=== PATIENT | female | born 1935 | race African-American/Black ===

== ENCOUNTER → 2016-12-06 | Outpatient (CLI) | payer OTHER ==
[~2016-12-06] MED LIST: ACETAMINOPHEN325 M1 PO; ACID CONTROL20 MG PO; ADVAIR 250-501 EACH INH; ALBUTEROL2.5 MG/0.1 INH; AMLODIPINE BESY10 MG PO; ARICEPT 5 MG TAB5 MG PO; ATORVASTATIN CA20 MG PO; BAYER CHEWABLE81 MG PO; BENICAR40 MG PO; CARVEDILOL12.5 MG PO; COLACE100 MG PO; FUROSEMIDE 40 M40 M1 PO; GLUCOPHAGE500 MG PO; HYDROCODON-ACE1 EAC7 PO; IMODIUM MULTI-1 EACH PO; K-DUR10 MEQ PO; MECLIZINE HCL25 M1 PO; MYLANTA GELCAP1 EACH PO; REMERON15 M1 PO; SEROQUEL 12.512.5 MG PO; SINGULAIR 10 MG10 M1 PO
== END ==
LOC: RAD 13:25
DX: J44.9 Chronic obstructive pulmonary disease, unspecified (principal); R06.89 Other abnormalities of breathing

== ENCOUNTER → 2017-12-06 | Outpatient (CLI) | payer OTHER ==
[~2017-12-06] MED LIST changes: +ALDACTONE50 MG PO; +CELEXA20 MG PO; +CENTRUM SILVER1 EAC4 PO; +FIBER CON PO; +FIBER TABS625 MG PO; +GABAPENTIN 100100 MG PO; +LIALDA1.2 GM PO; +PEPCID20 MG PO; +TRAMADOL 50 MG50 MG PO; +TYLENOL EXTRA500 MG PO
== END ==
LOC: RAD 13:17
DX: J44.9 Chronic obstructive pulmonary disease, unspecified (principal); I70.0 Atherosclerosis of aorta

== ENCOUNTER → 2018-02-03 | Outpatient (CLI) | payer OTHER ==
[~2018-02-03] MED LIST changes: -ALDACTONE50 MG PO; -CELEXA20 MG PO; -CENTRUM SILVER1 EAC4 PO; -FIBER CON PO; -FIBER TABS625 MG PO; -GABAPENTIN 100100 MG PO; -LIALDA1.2 GM PO; -PEPCID20 MG PO; -TRAMADOL 50 MG50 MG PO; -TYLENOL EXTRA500 MG PO
== END ==
LOC: RAD 15:35
DX: R07.89 Other chest pain (principal); R10.11 Right upper quadrant pain; I70.0 Atherosclerosis of aorta

== ENCOUNTER → 2018-02-07 | Outpatient (CLI) | payer OTHER | LOC: ULTRA 06:48 | DX: K80.20 Calculus of gallbladder without cholecystitis without obstruction (principal); N28.1 Cyst of kidney, acquired ==

== ENCOUNTER 2018-03-03 05:23 | Inpatient (IN) | payer OTHER ==
[~2018-03-03] VITALS: Ht 149.9 cm; Wt 68.5 kg
--- NOTE | ~2018-03-03 | EKG ---
[place] [address] [address] [facility] [place] [address] ELECTROCARDIOGRAM REPORT Name: BRUNA CRUZ Room #: 424-P ADM IN M.R.#: [id number] Admission: 03/03/18 Attend Phys: Hetal Sebastian MD, Discharge: Date of : 31 Report #: [id number] THIS REPORT FOR: //name// [facility] Test Date: 2018-03-03 Test Time: 10:20:46 Pat Name: BRUNA CRUZ Department: Room: 150 2 Gender: F Shoulder Boner: Lucie BURDICK : 1935 Requested By: Hetal Sebastian Order Number: [id number] MD: Jose Alvarenga Measurements Intervals Omro Rate: 68 P: 70 ME: 194 QRS: 8 QRSD: 113 T: 95 QT: 424 QTc: 451 Interpretive Statements Sinus rhythm Probable left atrial enlargement LVH with IVCD and secondary repol abnrm No previous ECG available for comparison Electronically Signed On 03-04-2018 14:06:50 CDT by Jose Alvarenga [email or web address] <ELECTRONICALLY SIGNED> By: Jose Alvarenga MD, [facility] 03/04/18 1406 1020 1020 Jose Alvarenga MD, [facility] /EPI
--- NOTE | ~2018-03-03 | PATH ---
[facility] [place] [address] PATHOLOGY RPT PROCEDURE Name: GRIGGSBRUNA OCTAVIO Room #: 424-P DIS IN M.R.#: [id number] Admission: 03/03/18 Date of : 31 Discharge: 03/04/18 Report #: [id number] Path Case #: [id number] [facility] Accession Number: [id number] . 01 Material submitted: . GALLBLADDER . 02 Diagnosis: "Gallbladder", cholecystectomy: - Chronic cholecystitis. - Cholelithiasis. (CLW:db; 03/04/2018) LBQ/03/04/2018 . 02 Electronically signed: . Danae Gustafson MD, Pathologist NPI- [id number] . 01 Gross description: . Received in formalin labeled "Bruna Griggs, gallbladder" and consists of a previously opened glistening pink and green gallbladder measuring 7.5 cm in length by 4.3 cm in circumference. The wall is pliable and averages 0.3 cm thick. The mucosa is gutierrez in color and diffusely finely granular. Also within the container are multiple black calculi ranging in size from less than 0.1 cm-0.2 cm and aggregating to 1.1 x 1.0 x 0.5 cm. Senior [employer] Consultant sections are submitted as A1. (TARA; 03/03/2018) JBR/JBR . 02 Pathologist provided ICD-10: K80.10 . 02 CPT . 293336 Performed at: [address], [place] [id number] MD Gael Butts MD Phone: [phone] Performed at: [address] [id number] MD Maylin Jonas MD Phone: [phone]
--- NOTE | ~2018-03-03 | O ---
[facility] [place] [address] OPERATIVE REPORT Name: BRUNA CRUZ Room #: 424-P ADM IN M.R.#: [id number] Admission: 03/03/18 Attend Phys: Hetal Sebastian MD, Discharge: Date of : 33 Report #: [id number] THIS REPORT FOR: //name// CC: Hetal Oconnor DATE OF SERVICE: 03/03/2018 PREOPERATIVE DIAGNOSIS: Symptomatic cholelithiasis. POSTOPERATIVE DIAGNOSES: 1. Symptomatic cholelithiasis. 2. Incarcerated umbilical hernia. PROCEDURES PERFORMED: 1. Laparoscopic cholecystectomy with intraoperative cholangiogram. 2. Laparoscopic primary suture repair of an incarcerated umbilical hernia. SURGEON: Hetal Sebastian MD. M48 M60 ARMOR CREWMAN: BEN Pena. ANESTHESIA: General endotracheal anesthesia. ESTIMATED BLOOD LOSS: Minimal (less than 5 mL). COMPLICATIONS: None appreciated. SPECIMENS: Gallbladder to pathology. INDICATIONS: The patient is an 82-year-old female who presented with chronic postprandial bloating and intermittent nausea with findings on ultrasound of gallstones. After thorough counseling, the patient presents for definitive surgical management for symptomatic cholelithiasis in the form of laparoscopic cholecystectomy with cholangiogram today. Intraoperative findings of a large amount of omentum incarcerated within a 2-cm umbilical hernia defect what were encountered that required reduction and primary suture repair. DESCRIPTION OF PROCEDURE: After explaining the risks, benefits and alternatives of the procedure with the patient in detail in the preoperative holding area and obtaining written consent, the patient was brought to the operating room and placed supine on the operating room table. After conducting a thorough timeout procedure verifying correct patient and procedure, the patient was given general endotracheal anesthesia. Once adequate anesthesia was obtained, her SCDs were hooked up to pneumatic compression device. She was given a preoperative dose of [facility] [address] [place] [address] OPERATIVE REPORT Name: NANCYBRUNA CUNNINGHAM Room #: 424-P [facility].#: [id number] Admission: 03/03/18 Attend Phys: Hetal Sebastian MD, Discharge: Date of : 33 Report #: [id number] antibiotics in line with the [facility] protocol. The patient's abdomen was prepped and draped in standard surgical sterile fashion. 5 mL of 0.5% Marcaine with epinephrine were used to anesthetize the skin in the supraumbilical location. A #15 bladed scalpel was used to create a 1-cm transverse skin incision at this location. An 11-mm Visiport was placed over 0-degree 5-mm laparoscope and was introduced through this incision site. Once intra-abdominal placement was verified visually, the obturator for the trocar and laparoscope were both removed and the abdomen was insufflated to 15 mmHg using carbon dioxide gas. The laparoscope was changed to a 5-mm 30-degree laparoscope, which was reintroduced through this trocar. The entire abdomen was evaluated to ensure no injury upon entry. I now placed 3 additional 5-mm trocars in the upper abdomen. First was placed in subxiphoid location and 2 were placed along the patient's right subcostal margin. All 3 additional 5-mm ports were placed under direct vision after anesthetizing the skin at each location with 5 mL of 0.5% Marcaine with epinephrine and I had created small skin nicks using #15 bladed scalpel. The patient was placed in steep reverse Trendelenburg with right side elevated and using the inferolateral most port along the patient's right flank. The fundus of the gallbladder was grasped and retracted cephalad. Careful tedious dissection was undertaken down around the cholecystocystic junction using combination of Harmonic scalpel and [place] dissector. Once I had attained a critical view, namely the cystic duct emanating from the infundibulum of the gallbladder and coursing the common bile duct as well as cystic artery running the surface of the gallbladder and I created a window behind each, I transected the cystic artery nearest to the gallbladder side using Harmonic scalpel for hemostasis. A single clip was then placed along the cystic duct nearest to the gallbladder side and a small ductotomy was made just distal to this clip using EndoShears. This ductotomy was cannulated using the taut cholangiocatheter setup and an intraoperative cholangiogram was obtained. We had prompt opacification of a long cystic duct with both intra and extrahepatic bile ducts becoming opacified. There was antegrade flow of contrast into the duodenum with no evidence of filling defects or obstruction. The cholangiocatheter setup was removed. Three clips were placed along the cystic duct nearest to the common bile duct side and it was transected above these clips using Harmonic scalpel to seal the end of the duct closed. Further retraction at the infundibulum of the gallbladder in cephalad direction allowed me to elevate the gallbladder off the liver bed using Harmonic scalpel for hemostasis. Once completely detached, the laparoscope was removed, changed to the right midclavicular 5-mm port. The EndoCatch bag was placed in supraumbilical trocar and the specimen was placed within it under direct vision. The pursestring suture was drawn and upon removal, we saw evidence of a large amount of omentum incarcerated within an umbilical hernia defect inferior to my supraumbilical fascial incision. I therefore withdrew the specimen out of the abdomen under direct vision and proceeded to place the fascial closing suture of 0 PDS suture on the Rusty-Tucker suture passer device around my supraumbilical fascial incision. This was tagged with hemostat. The trocars were placed under direct vision. I was now able to use laparoscopic graspers to reduce the large amount of omentum [facility] [address] [place] [address] OPERATIVE REPORT Name: NANCYBRUNA CUNNINGHAM Room #: 424-P [facility] IN .R.#: [id number] Admission: 03/03/18 Attend Phys: Hetal Sebastian MD, Discharge: Date of : 33 Report #: [id number] from the incarcerated umbilical hernia, which appeared to be 2 x 2 cm in dimension. A #1 PDS suture was now utilized on the Rusty-Tucker suture passer device to place a riaxng-gt-irnwl fascial closing suture around this defect, which was then tied down through a separate stab incision in the infraumbilical location. This effectively repaired the umbilical hernia defect to hopefully prevent recurrent incarceration. The laparoscope was placed back to the supraumbilical trocar and the gallbladder fossa was evaluated. I irrigated the upper abdomen with 500 mL of normal saline. The irrigant ran clear. All irrigant was suctioned out. The gallbladder fossa was dry. There was no bleeding, no spillage and the clips were seated nicely on the cystic duct stump remnant. The abdomen was fully desufflated. The 0 PDS suture was tied down. All ports were removed under direct vision. A 4-0 Monocryl was used in a standard subcuticular fashion for all skin incisions and Dermabond glue was applied to all skin wounds. The gallbladder was opened on the back table showing significant findings of cholesterolosis and marked cholelithiasis, but no other pathologic findings were identified. At the end of the procedure, all instrument, needle and sponge counts were correct. The patient tolerated the procedure without incident, was awakened in the operating room and transitioned to the recovery room in stable condition with no apparent complications. <ELECTRONICALLY SIGNED> By: Hetal Sebastian MD, FACS 03/03/18 1523 1253 1340 Hetal Sebastian MD, FACS /nt
[~2018-03-03 05:23] MED LIST changes: +ALDACTONE50 MG PO; +CELEXA20 MG PO; +CENTRUM SILVER1 EAC4 PO; +FIBER TABS625 MG PO; +GABAPENTIN 100100 MG PO; +LIALDA1.2 GM PO; +PEPCID20 MG PO
[2018-03-03 09:58] LABS: HEMATOCRIT 39.7 % (37.0-47.0); HEMOGLOBIN 12.8 gm/dL (12.0-15.0)
[2018-03-03 09:59] VITALS: BP 147/57
[2018-03-03 10:06] LABS: CALCIUM 10.1 mg/dL (8.5-10.1); CREATININE 1.2 mg/dL (0.6-1.0); POTASSIUM 4.7 mmol/L (3.5-5.1)
[2018-03-03 13:41] VITALS: BP 150/66
[2018-03-03 15:03] VITALS: BP 149/44
[2018-03-03 19:37] VITALS: BP 150/57
[2018-03-04 04:07] VITALS: BP 111/45
[2018-03-04 05:53] LABS: HEMATOCRIT 34.9 % (37.0-47.0); HEMOGLOBIN 11.3 gm/dL (12.0-15.0); MCH 28.5 pg (26.0-34.0); MCHC 32.3 g/dL (28.0-37.0); MCV 88.3 fL (80.0-100.0); RBC 3.95 mil/uL (4.20-5.00); RDW 15.1 % (10.5-14.5)
[2018-03-04 06:06] LABS: CALCIUM 9.2 mg/dL (8.5-10.1); CREATININE 1.3 mg/dL (0.6-1.0); POTASSIUM 5.4 mmol/L (3.5-5.1)
[2018-03-04 07:33] VITALS: BP 114/47
[2018-03-04 15:12] VITALS: BP 114/47
[2018-03-04 15:13] VITALS: BP 114/47
== END 2018-03-04 16:01 | disposition home or self-care (01) | DRG 354 ==
LOC: 4E 05:23 → TBA 05:23 → PRE 13:39 → 4E 14:17
PROVIDERS: Surgery
DX: K42.0 Umbilical hernia with obstruction, without gangrene (principal); K80.10 Calculus of gallbladder with chronic cholecystitis without obstruction; I10 Essential (primary) hypertension; E78.5 Hyperlipidemia, unspecified; F03.90 Unspecified dementia, unspecified severity, without behavioral disturbance, psychotic disturbance, mood disturbance, and anxiety; K21.9 Gastro-esophageal reflux disease without esophagitis; G62.9 Polyneuropathy, unspecified; Z88.8 Allergy status to other drugs, medicaments and biological substances; Z88.0 Allergy status to penicillin
CPT/HCPCS: 10183; 50010; 50101; 50249; 50411; 50555; 50558; 50962; 51489; 51975; 52265; 53307; 54022; 54118; 55245; 55317; 56462; 56525; 56526; 62110; 62900; 70005

== ENCOUNTER → 2018-05-12 | Outpatient (CLI) | payer OTHER | LOC: CAT 13:00 | DX: N28.1 Cyst of kidney, acquired (principal); K42.9 Umbilical hernia without obstruction or gangrene; K57.30 Diverticulosis of large intestine without perforation or abscess without bleeding; I70.0 Atherosclerosis of aorta; M47.815 Spondylosis without myelopathy or radiculopathy, thoracolumbar region; M41.85 Other forms of scoliosis, thoracolumbar region; K76.89 Other specified diseases of liver; I11.0 Hypertensive heart disease with heart failure; I50.9 Heart failure, unspecified; E11.9 Type 2 diabetes mellitus without complications; J45.909 Unspecified asthma, uncomplicated; G47.30 Sleep apnea, unspecified ==

== ENCOUNTER → 2018-07-16 | Outpatient (CLI) | payer OTHER ==
[~2018-07-16] VITALS: Ht 149.9 cm; Wt 69.9 kg
[~2018-07-16] MED LIST changes: +FIBER CON PO; +TRAMADOL 50 MG50 MG PO; +TYLENOL EXTRA500 MG PO
--- NOTE | ~2018-07-16 | HPC ---
[facility] [place] [address] PAIN MANAGEMENT CONSULTATION Name: BRUNA CRUZ Room #: REG [facility] Nakul.#: [id number] Admission: 07/16/18 Attend Phys: Magdy Tierney MD Discharge: Date of : 33 Report #: [id number] THIS REPORT FOR: //name// CC: Madgy Oconnor MD DATE OF SERVICE: 07/16/2018 PRIMARY CARE PHYSICIAN: En Oconnor M.D. CHIEF COMPLAINT: Pain is about 50% better. HISTORY OF PRESENT ILLNESS: The patient is an 82-year-old female who has been seen in the pain clinic because of pain and discomfort in the right low back area. States that she has had some pain that was radiating down into her buttocks area. She returns today indicating that she is having pain and discomfort in the right lower buttocks area. Notes that the injection was helpful. Feels that things are about 50% better. She feels that another injection could be beneficial today and would like to proceed with it. PROCEDURE NOTE: Risks and benefits of the procedure were discussed. They include but are not limited to infection, increased muscle soreness, worsening of pain, no improvement in pain and the patient choose to proceed. Her daughter is present. The patient was assisted in getting on the examination table. She was then placed perpendicular to the table. A chair was placed under her feet. The patient leaned forward as though she were to tie her shoes. The palpation in the right posterior superior iliac spine area reproduced her pain and discomfort. A 25-gauge needle was then advanced into the area of discomfort. The patient states that this was the area of discomfort. A total of 80 mg Depo-Medrol and 8 mL of 0.5% bupivacaine was injected. The patient tolerated the procedure well. There were no complications. She will follow up in the future as needed. The patient has been given a script for tramadol. She felt that this medication was beneficial. Has had no problems with it. A script for 90 tablets 1 p.o. q.8 hours p.r.n. has been dispensed. The patient will call us if she has any concerns. We would like to thank you for letting us participate in her care. We hope she continues to improve. By: [id number] Magdy Tierney MD /LÁZARO
[2018-07-16 13:52] VITALS: BP 161/62
== END | disposition home or self-care (01) ==
LOC: PAIN 06:55
DX: M79.18 Myalgia, other site (principal); G89.29 Other chronic pain; Z87.19 Personal history of other diseases of the digestive system; Z88.0 Allergy status to penicillin; Z88.8 Allergy status to other drugs, medicaments and biological substances; Z79.82 Long term (current) use of aspirin; Z79.899 Other long term (current) drug therapy

== ENCOUNTER → 2018-12-10 | Outpatient (CLI) | payer OTHER | LOC: RAD 13:05 | DX: J98.11 Atelectasis (principal); Z88.1 Allergy status to other antibiotic agents; Z88.0 Allergy status to penicillin ==

== ENCOUNTER → 2019-04-29 | Outpatient (CLI) | payer OTHER ==
[~2019-04-29] VITALS: Ht 149.9 cm; Wt 65.0 kg
--- NOTE | ~2019-04-29 | HPC ---
[facility] [place] [address] PAIN MANAGEMENT CONSULTATION Name: BRUNA CRUZ Room #: REG [facility] Gonzlaez#: [id number] Admission: 04/29/19 Attend Phys: Magdy Tierney MD Discharge: Date of : 33 Report #: [id number] THIS REPORT FOR: //name// CC: Magdy Oconnor DATE OF SERVICE: 04/29/2019 HISTORY: The patient is an 83-year-old female who has been seen in the pain clinic in the past because of myofascial pain. She has pain in the lower portion of her back on the left side in the past. She underwent a trigger point injection in 05/2018. She noticed an improvement in that pain. She was doing reasonably well until a few weeks ago. She has noticed an increase in pain and discomfort in the low back area. She gleaned benefit from the last injection and would like to proceed with another injection to help decrease the pain and discomfort. She has a history of spinal stenosis. She has had back surgery in the lumbar area. She has clinical signs consistent with spinal stenosis. She is not able to stand for a prolonged period of time, walking can be problematic. Does have some pain that radiates down into her leg. She feels that this pain is different from the spinal stenosis and is similar to that she experienced in 05/2018. ALLERGIES: PENICILLIN AND ERYTHROMYCIN. CURRENT MEDICATIONS: Tramadol 50 mg q. 8 hours p.r.n., fiber one tablet b.i.d., Advair 250/50 Diskus, Tylenol Extra Strength 500 mg, multivitamin, Centrum Silver, Aldactone 25 mg orally, Lialda 1.2 grams, gabapentin 100 mg at bedtime, Celexa 20 mg, Pepcid 20 mg b.i.d., Aricept 5 mg, total of 10 mg daily, Coreg 12.5 mg b.i.d., Singulair 10 mg, Remeron 15 mg at bedtime, Benicar 40 mg, aspirin 81 mg, Lipitor 20 mg, amlodipine 10 mg b.i.d. PAIN CLINIC ASSESSMENT AND PQRS: 1. Rheumatoid arthritis. The patient is not being treated for rheumatoid arthritis. She does have osteoarthritis involving her knees. 2. Height 4 feet 11 inches, weight 143 pounds, BMI is 28.9. 3. Vital Signs: Blood pressure 144/62, pulse 65, respiratory rate 16, room air saturation 97%, temperature is not included. 4. Pain intensity 7. 5. Fall risk. The patient has not fallen in the last 3 months. 6. Blood thinner. The patient is not on a blood thinning medication. 7. Hypertension. The patient is being treated for hypertension. 8. Opioids greater than 6 weeks. The patient is not on an opioid contract with the pain clinic. 9. Risk assessment tool, low for opioid use. 10. Functional assessment tool . 11. Recreational drug use. The patient denies use of recreational drugs. [address] [address] PAIN MANAGEMENT CONSULTATION Name: BRUNA CRUZ Room #: DEMETRIA Gonzalez#: [id number] Admission: 04/29/19 Attend Phys: Magdy Tierney MD Discharge: Date of : 33 Report #: [id number] 12. Tobacco: The patient denies use of alcoholic beverages. PHYSICAL EXAMINATION: GENERAL: The patient is a well-developed, well-nourished black female, appears her stated age. She is alert and oriented x 3. She is able to describe and explain where her pain is located. She is accompanied by her daughter. HEENT: Normocephalic, atraumatic. Extraocular eye muscles intact. The patient is wearing glasses. The patient is without JVD or adenopathy. Does sit with her head leaning to the left. Upper extremity muscle strength judged to be 4-/5 for the major muscle groups in the upper extremity. Lower extremity muscle strength judged to be 4-/5 for the lower extremity. The patient is without significant scoliosis or lordosis. She has a well-healed scar in the lower portion of her back. Has pain and discomfort in a trigger point area on the left in the area of the posterior superior iliac spine and gluteus marisol. Palpation in this area does reproduce pain and discomfort. IMPRESSION: 1. Myofascial pain, low back area on the left. 2. Diabetes. 3. Hypertension. 4. Gallbladder disease. 5. Colon problems. 6. Joint disease. 7. Stroke. 8. Dementia, mild/stable. 9. Neuropathy. 10. Gastroesophageal reflux disease. RECOMMENDATIONS: We discussed treatment options with the patient and with her daughter. She has undergone a trigger point injection in the past. This was in 05/2018. She gleaned benefit from that. She feels that this trigger point is similar to that. It is located in the lower portion of her back. She is able to discern where the trigger point is in place, one finger on it. It is near the posterior superior iliac spine area near the gluteus marisol. PROCEDURE NOTE: We discussed the possible complication of the procedure with the daughter and with her mom. Possibility of infection, bleeding, nerve damage were discussed and the patient elects to proceed. The patient will monitor her blood sugars, which can be elevated as a result of the injection. The patient was assisted in getting on examination table. Her feet were placed in a chair for stabilization. The patient was perpendicular to the table. Her back was sterilely prepped with a chlorhexidine solution and allowed to dry. A 25-gauge spinal needle was then advanced into the area of discomfort. The patient states this did reproduce her pain and discomfort. Aspiration was negative. The patient had no sensation of numbness, tingling or discomfort with [facility] [address] [place] [address] PAIN MANAGEMENT CONSULTATION Name: BRUNA CRUZ Room #: REG [facility]#: [id number] Admission: 04/29/19 Attend Phys: Magdy Tierney MD Discharge: Date of : 33 Report #: [id number] the slow injection of the medication over about 3 minutes. The patient remained in the pain clinic for an appropriate amount of time. Pain was described as 0 at the time of discharge. There is no weakness in the area of her sciatic nerve. We would like to thank you for letting us participate in her care. We hope she continues to improve. By: 1522 20 Magdy Tierney MD /LÁZARO
[2019-04-29 13:38] VITALS: BP 144/62
--- NOTE | 2019-04-29 13:51 | NUR ---
Pain Clinic Assessment: 1. History of Osteoarthritis: knees History of Rheumatoid Arthritis: Not Applicable 2. Height: 4 ft. 11 in. 149.9 cm. Weight: 143.2 lb. oz. 64.955 kg. Patient's BMI: 28.9 3. Vital Signs: BP: 144/62 Pulse: 65 Resp: 16 Temp: 02 Sat: 97 ECG Mon: 4. Pain Intensity: 7 5. Fall Risk: Dizziness: N Needs help standing or walking: Y Fallen in the last 3 months: N Fall risk comments: 6. Patient on Blood Thinner: None 7. History of Hypertension: Y 8. Opioid Therapy greater than 6 weeks: Y Opiate Contract Signed: 9. Risk Assessment Tool Provided: LOW 10. Functional Assessment Tool: 11. Recreational Drug Use: Never Drug Type: Tobacco Use: Never Smoker Tobacco Type: Amount or Packs/day: How Many Years: Alcohol Use: No Frequency: Quant:
== END | disposition home or self-care (01) ==
LOC: PAIN 07:01
DX: M79.18 Myalgia, other site (principal); E11.40 Type 2 diabetes mellitus with diabetic neuropathy, unspecified; I10 Essential (primary) hypertension; K82.9 Disease of gallbladder, unspecified; F03.90 Unspecified dementia, unspecified severity, without behavioral disturbance, psychotic disturbance, mood disturbance, and anxiety; K21.9 Gastro-esophageal reflux disease without esophagitis; M06.9 Rheumatoid arthritis, unspecified; Z86.73 Personal history of transient ischemic attack (TIA), and cerebral infarction without residual deficits; Z88.0 Allergy status to penicillin; Z88.8 Allergy status to other drugs, medicaments and biological substances; Z79.899 Other long term (current) drug therapy

== ENCOUNTER → 2021-07-12 | Outpatient (CLI) | payer OTHER | LOC: RAD 13:37 | PROVIDERS: ATTEND Internal Medicine Pulmonary Disease | DX: R06.02 Shortness of breath (principal) ==

== ENCOUNTER → 2021-10-10 | Outpatient (CLI) | payer OTHER ==
[~2021-10-10] MED LIST changes: +PROAIR HFA8.5 GM INH
== END ==
LOC: LAB 10:31
PROVIDERS: ATTEND Student in an Organized Health Care Education/Training Program
DX: Z01.812 Encounter for preprocedural laboratory examination (principal); Z20.822 Contact with and (suspected) exposure to COVID-19

== ENCOUNTER → 2021-10-12 | Day surgery (SDC) | payer OTHER ==
[~2021-10-12] VITALS: Ht 149.9 cm; Wt 67.6 kg
--- NOTE | ~2021-10-12 | O ---
[facility] [place] [address] OPERATIVE REPORT Name: BRUNA CRUZ Room #: REG [facility] M.R.#: [id number] Admission: 10/12/21 Attend Phys: Carlo Santana MD Discharge: Date of : 33 Report #: [id number] THIS REPORT FOR: cc: Sara Hamilton MD,Sara Santana,Carlo Veloz MD ~ cc: En Oconnor MD, Sara Hamilton MD DATE OF SERVICE: 10/12/2021 EXCEPTIONAL STUDENT EDUCATION AIDE: None. PREOPERATIVE DIAGNOSIS: Bilateral upper lid ptosis with superior visual field defects both eyes. POSTOPERATIVE DIAGNOSIS: Bilateral upper lid ptosis with superior visual field defects both eyes. OPERATION PERFORMED: Bilateral upper lid functional ptosis repair. EXCEPTIONAL STUDENT EDUCATION AIDE: None. ANESTHESIA: Local with IV sedation. COMPLICATIONS: None. INDICATIONS FOR PROCEDURE: This patient has bilateral upper lid ptosis with superior visual field loss both eyes. Visual field testing demonstrates dense superior visual defects. Retesting with the upper lid elevated shows an improvement in visual field loss of over 30% and in excess of 12 degrees. The current procedure is being undertaken in order to improve the patient's visual function. Informed consent was obtained to include but not limited to the risk of loss of vision, bleeding, infection, scarring, failure to improve the problem and need for further surgery, such as adjustment of lid height. DESCRIPTION OF PROCEDURE: The patient was taken to the operating room, where 2% Xylocaine with epinephrine mixed with equal parts of 0.75% Marcaine with Wydase was administered transcutaneously to each upper lid. The patient was then prepped and draped in the usual sterile fashion. An upper lid crease incision was then made bilaterally and the dissection was carried down until the orbital septum was identified. The orbital septum was then cleared and the preaponeurotic fat identified. The levator aponeurosis was then disinserted from the anterior surface of the tarsal plate and dissected [address] [address] OPERATIVE REPORT Name: BRUNA CRUZ Room #: REG [facility].#: [id number] Admission: 10/12/21 Attend Phys: Carlo Santana MD Discharge: Date of : 33 Report #: [id number] free in the avascular Narayanan's muscle plane. The aponeurosis was then advanced and reattached to the anterior surface of the tarsal plate with interrupted mattress 6-0 Novafil sutures on each side, adjusting for height and contour. The redundant aponeurosis was then amputated. The incision was then closed with multiple interrupted 6-0 chromic sutures that were used to recreate an upper lid crease. The skin was closed with a running 6-0 plain gut suture. The wound was then cleaned and dressed with ophthalmic antibiotic ointment followed by a Telfa pad. The patient was transported to the recovery area, having tolerated the procedure well with no anesthesia or operative complications being noted. By: [id number] Carlo Santana MD /ashley
[2021-10-12 07:00] VITALS: BP 161/49
== END | disposition home or self-care (01) ==
LOC: OR 06:19
PROVIDERS: ATTEND Ophthalmology
DX: H02.413 Mechanical ptosis of bilateral eyelids (principal); H53.462 Homonymous bilateral field defects, left side; H53.461 Homonymous bilateral field defects, right side; I11.0 Hypertensive heart disease with heart failure; I50.9 Heart failure, unspecified; E11.9 Type 2 diabetes mellitus without complications; E78.5 Hyperlipidemia, unspecified; J43.9 Emphysema, unspecified; F32.9 Major depressive disorder, single episode, unspecified; F41.9 Anxiety disorder, unspecified; F03.90 Unspecified dementia, unspecified severity, without behavioral disturbance, psychotic disturbance, mood disturbance, and anxiety; K21.9 Gastro-esophageal reflux disease without esophagitis; Z98.890 Other specified postprocedural states; Z90.710 Acquired absence of both cervix and uterus; Z79.899 Other long term (current) drug therapy; Z90.49 Acquired absence of other specified parts of digestive tract; Z88.0 Allergy status to penicillin
CPT/HCPCS: 50010; 50101; 50386; 50398; 51636; 56531; 62110; 62850; 70005